=== PATIENT | female | born 1990 | race Caucasian/White ===

== ENCOUNTER 2016-08-24 18:05 | Emergency (ER) | payer BC ==
[2016-08-24 18:05] VITALS: BP 149/89
--- NOTE | 2016-08-24 18:27 | ED.ADGEN ---
Past History Past Medical History: Other Past Surgical History: Tonsillectomy, Other Adult General Chief Complaint Chief Complaint ".. I ve gotten really sick the last couple hours... my stomach hurts.. my epigastric hurts ... my Lt. lower quadrant...hurts.. .. and I feel like I am going to vomit.. and I did have two diarrhea stools.. ( Pt then promptly starts vomiting repeatedly in the trash can) HPI HPI Patient is a 26 year old female who presents with above hx and complaints of Generalized abdomen pain. Patient does have some localization of pain to epigastric area and left lower quadrant. Patient reports no intake of bad food. Patient denies any travel. Patient denies any ill contacts. Patient denies any pulse past history of bowel problems. Patient is normally healthy. Review of Systems Review of Systems Constitutional: Denies fever or chills [] Eyes: Denies change in visual acuity, redness, or eye pain [] HENT: Denies nasal congestion or sore throat [] Respiratory: Denies cough or shortness of breath [] Cardiovascular: No additional information not addressed in HPI [] GI: Plaints of generalized abdominal pain, nausea, vomiting, and diarrhea [] : Denies dysuria or hematuria [] Musculoskeletal: Denies back pain or joint pain [] Integument: Denies rash or skin lesions [] Neurologic: Denies headache, focal weakness or sensory changes [] Endocrine: Denies polyuria or polydipsia [] Family History Family History Noncontributory Current Medications Current Medications Current Medications Medications (Trade) Dose Ordered Sig/Brigid Start Time Stop Time Status Last Admin Dose Admin Clindamycin Phosphate (Cleocin) 900 mg STK-MED ONCE 08/24/16 20:25 08/24/16 20:26 DC Clindamycin Phosphate 300 mg/ Dextrose 52 ml @ 104 mls/hr 1X ONCE 08/24/16 20:00 08/24/16 20:29 DC 08/24/16 20:00 104 MLS/HR Dextrose 50 ml @ As Directed STK-MED ONCE 08/24/16 20:25 08/24/16 20:26 DC Famotidine (Pepcid) 20 mg 1X ONCE 08/24/16 19:00 08/24/16 19:01 DC 08/24/16 19:00 20 MG Lactated Ringer's (Iv Lactated Ringers) 1,000 ml @ 1,000 mls/hr Q1H 08/24/16 19:00 08/24/16 19:08 1,000 MLS/HR Magnesium Hydroxide (Milk Of Magnesia) 2,400 mg 1X ONCE 08/24/16 21:15 08/24/16 21:16 DC 08/24/16 21:15 2,400 MG Morphine Sulfate 10 mg 10 mg 1X ONCE 08/24/16 19:00 08/24/16 19:01 DC 08/24/16 19:00 10 MG Ondansetron HCl (Zofran) 8 mg 1X ONCE 08/24/16 19:00 08/24/16 19:01 DC 08/24/16 19:00 8 MG Potassium Chloride (KCl Oral Soln) 40 meq 1X ONCE 08/24/16 21:15 08/24/16 21:16 DC 08/24/16 21:15 40 MEQ Allergies Allergies Allergies Coded Allergies Type Severity Reaction Last Updated Verified Penicillins Allergy Unknown 08/24/16 Yes ampicillin Allergy Unknown 08/24/16 Yes Physical Exam Physical Exam Constitutional: well nourished, mild distress, non-toxic appearance. [] HENT: Normocephalic, atraumatic, bilateral external ears normal, oropharynx moist, no oral exudates, nose normal. [] Eyes: PERRLA, EOMI, conjunctiva normal, no discharge. Glasses Neck: Normal range of motion, no tenderness, supple, no stridor. [] Cardiovascular:Heart rate regular rhythm, no murmur [] Lungs & Thorax: Bilateral breath sounds clear and equal at apexes on auscultation [] Abdomen: Bowel sounds hyperactive, soft, mild epigastric and left lower quadrant tenderness, no masses, no pulsatile masses. Abdomen is tympanic. No true rebound. Patient denies vaginal discharge. Patient declines pelvic exam at this time Skin: Warm, dry, no erythema, no rash. [] Back: No tenderness, no CVA tenderness. [] Extremities: No tenderness, no cyanosis, no clubbing, ROM intact, no edema. No psoas or heeltap. Neurologic: Alert and oriented X 3, normal motor function, normal sensory function, no focal deficits noted. [] Psychologic: Affect anxious, judgement normal, mood normal. [] Current Patient Data Vital Signs Vital Signs Date Time Temp Pulse Resp B/P Pulse Ox O2 Delivery O2 Flow Rate FiO2 08/24/16 19:15 96 96 08/24/16 19:00 14 08/24/16 18:05 97.4 Room Air Lab Results Laboratory Tests Test 08/24/16 18:40 08/24/16 18:45 08/24/16 18:50 Urine Collection Type Unknown Urine Color Yellow Urine Clarity Hazy Urine pH 5.5 Urine Specific Preston >=1.030 Urine Protein 30 mg/dl (NEG-TRACE) Urine Glucose (UA) Negmg/dL (NEG) Urine Ketones (Stick) 40mg/dL (NEG) Urine Blood Trace (NEG) Urine Nitrite Neg (NEG) Urine Bilirubin Neg (NEG) Urine Urobilinogen Dipstick 0.2mg/dL (0.2 mg/dL) Urine Leukocyte Esterase Trace (NEG) Urine RBC 1-2/HPF (0-2) Urine WBC 5-10/HPF (0-4) Urine Squamous Epithelial Cells Many/LPF Urine Bacteria Few/HPF (0-FEW) Urine Mucus Marked/LPF Urine Opiates Screen Neg (NEG) Urine Methadone Screen Neg (NEG) Urine Barbiturates Neg (NEG) Urine Phencyclidine Screen Neg (NEG) Urine Amphetamine/Methamphetamine Pos (NEG) Urine Benzodiazepines Screen Neg (NEG) Urine Cocaine Screen Neg (NEG) Urine Cannabinoids Screen Neg (NEG) Urine Ethyl Alcohol Neg (NEG) White Blood Count 14.7x10^3/uL (4.0-11.0) H Red Blood Count 5.23x10^6/uL (3.50-5.40) Hemoglobin 15.2g/dL (12.0-15.5) Hematocrit 45.7% (36.0-47.0) Mean Corpuscular Volume 87fL (79-100) Mean Corpuscular Hemoglobin 29pg (25-35) Mean Corpuscular Hemoglobin Concent 33g/dL (31-37) Red Cell Distribution Width 12.3% (11.5-14.5) Platelet Count 329x10^3/uL (140-400) Neutrophils (%) (Auto) 80% (31-73) H Lymphocytes (%) (Auto) 16% (24-48) L Monocytes (%) (Auto) 3% (0-9) Eosinophils (%) (Auto) 0% (0-3) Basophils (%) (Auto) 0% (0-3) Neutrophils # (Auto) 11.8x10^3uL (1.8-7.7) H Lymphocytes # (Auto) 2.4x10^3/uL (1.0-4.8) Monocytes # (Auto) 0.5x10^3/uL (0.0-1.1) Eosinophils # (Auto) 0.0x10^3/uL (0.0-0.7) Basophils # (Auto) 0.1x10^3/uL (0.0-0.2) Prothrombin Time 10.2SEC (9.4-11.4) Prothrombin Time INR 1.0 (0.9-1.1) PTT 21SEC (23-33) L Sodium Level 140mmol/L (136-145) Potassium Level 3.0mmol/L (3.5-5.1) L Chloride Level 102mmol/L (98-107) Carbon Dioxide Level 24mmol/L (21-32) Anion Gap 14 (6-14) Blood Urea Nitrogen 8mg/dL (7-20) Creatinine 0.9mg/dL (0.6-1.0) Estimated GFR (Cockcroft-Gault) 76.9 Glucose Level 113mg/dL (70-99) H Calcium Level 9.5mg/dL (8.5-10.1) Magnesium Level 1.7mg/dL (1.8-2.4) L Total Bilirubin 0.5mg/dL (0.2-1.0) Direct Bilirubin 0.1mg/dL (0.0-0.2) Aspartate Amino Transferase (AST) 16U/L (15-37) Alanine Aminotransferase (ALT) 24U/L (14-59) Alkaline Phosphatase 101U/L (46-116) Creatine Kinase 88U/L (26-192) Total Protein 8.7g/dL (6.4-8.2) H Albumin 4.0g/dL (3.4-5.0) Amylase Level 41U/L (25-115) Lipase 77U/L (73-393) POC Urine HCG, Qualitative hcg negative (Negative) EKG EKG [] Radiology/Procedures Radiology/Procedures Interpretation of chest and abdomen films shows no acute cardiopulmonary findings. There is no free air under the diaphragm. There is nonspecific bowel gas pattern. [] Course & Med Decision Making Course & Med Decision Making Pertinent Labs and Imaging studies reviewed. (See chart for details). Patient stay on a clear fluid diet only for the next 48 hours. No solid no milk products allow bowel rest. Patient take [id number] Tylenol and ibuprofen for discomfort. Patient may take Zofran 8 mg up 4 times a day for nausea and vomiting. Patient to have reexam with primary care. Patient review all x-rays to ED and lab results with primary care. Patient return if any concerns. Push potassium containing fruit drinks. [] Final Impression Final Impression 1. Abdomen Pain 2. Nausea, Vomiting and Diarrhea[] 3. Hypokalemia 4. Hypomagnesium 5. Leukocytosis with a viral differential Problems: Dragon Disclaimer Dragon Disclaimer This electronic medical record was generated, in whole or in part, using a voice recognition dictation system. NORMA FLORES MD Aug 24, 2016 18:27
[2016-08-24] MEDS ORDERED: MORPHINE SULFATE 10 MG/ML SYRINGE. SQ ONE (19:00)
[2016-08-24] MEDS ORDERED: IV RINGERS SOLUTION,LACTATED 1,000 ML IV SCH (19:00)
[2016-08-24] MEDS ORDERED: FAMOTIDINE 20 MG/2 ML VIAL IVP ONE (19:00)
[2016-08-24] MEDS ORDERED: ONDANSETRON PF 4 MG/2 ML VIAL. IV ONE (19:00)
[2016-08-24 19:01] LABS: BASO # 0.1 x10^3/uL (0.0-0.2); BASO % 0 % (0-3); EOS % 0 % (0-3); HEMATOCRIT 45.7 % (36.0-47.0); HEMOGLOBIN 15.2 g/dL (12.0-15.5); LYMPH # 2.4 x10^3/uL (1.0-4.8); LYMPH % 16 % (24-48); MEAN CORPUSCULAR HEMOGLOBIN 29 pg (25-35); MEAN CORPUSCULAR HGB CONC 33 g/dL (31-37); MEAN CORPUSCULAR VOLUME 87 fL (79-100); MONO # 0.5 x10^3/uL (0.0-1.1); MONO % 3 % (0-9); NEUT # 11.8 x10^3uL (1.8-7.7); NEUT % 80 % (31-73); PLATELET COUNT 329 x10^3/uL (140-400); RED BLOOD COUNT 5.23 x10^6/uL (3.50-5.40); RED CELL DISTRIBUTION WIDTH 12.3 % (11.5-14.5); WHITE BLOOD COUNT 14.7 x10^3/uL (4.0-11.0)
[2016-08-24 19:15] LABS: CALCIUM 9.5 mg/dL (8.5-10.1); CREATININE 0.9 mg/dL (0.6-1.0); DIRECT BILIRUBIN 0.1 mg/dL (0.0-0.2); GFR 76.9; MAGNESIUM 1.7 mg/dL (1.8-2.4); TOTAL BILIRUBIN 0.5 mg/dL (0.2-1.0); TOTAL PROTEIN 8.7 g/dL (6.4-8.2)
[2016-08-24 19:17] LABS: AMPHETAMINE/METHAMPHETAMINE POS (NEG); BARBITURATES NEG (NEG); BENZODIAZEPINES NEG (NEG); CANNABINOIDS NEG (NEG); COCAINE NEG (NEG); METHADONE NEG (NEG); OPIATES NEG (NEG); PHENCYCLIDINE NEG (NEG)
[2016-08-24 19:22] LABS: BILIRUBIN,URINE NEG (NEG); CLARITY,URINE HAZY; COLOR,URINE YELLOW; GLUCOSE,URINE NEG (NEG); NITRITE,URINE NEG (NEG); UROBILINOGEN,URINE 0.2 mg/dL (0.2 mg/dL)
[2016-08-24 19:23] LABS: BACTERIA,URINE FEW /HPF (0-FEW); SQUAMOUS EPITHELIAL CELL,UR MANY /LPF
[2016-08-24] MEDS ORDERED: CLINDAMYCIN 300 MG in IV DEXTROSE 5% 50 ML IV ONE (20:00)
[2016-08-24] MEDS ORDERED: CLINDAMYCIN 900 MG/6 ML VIAL. ONE (20:25)
[2016-08-24] MEDS ORDERED: IV DEXTROSE 5% 50 ML ONE (20:25)
[2016-08-24] MEDS ORDERED: LEVO500T38 PO (20:53)
[2016-08-24] MEDS ORDERED: ONDA8TAB12 PO (20:54)
[2016-08-24] MEDS ORDERED: HYDR-79 PO (20:54)
[2016-08-24] MEDS ORDERED: POTASSIUM CHLORIDE 20 MEQ/15 ML ORAL LIQUID. PEG ONE (21:15)
[2016-08-24] MEDS ORDERED: MAGNESIUM HYDROXIDE 2,400 MG/30 ML ORAL.SUSP. PO ONE (21:15)
--- NOTE | 2016-08-25 08:23 | RAD ---
Exam: PA and lateral chest radiograph History: Chest and abdominal pain with nausea and vomiting today. Comparison: None. Findings: Cardiomediastinal silhouette is within normal limits for size. Bilateral lung velázquez are free of focal infiltrate. No pleural effusion is seen. Impression: No acute cardiopulmonary process.
--- NOTE | 2016-08-25 08:23 | RAD ---
Abdomen radiograph History: Pain, nausea, vomiting. Comparison: None. Findings: AP supine and upright views of the abdomen. Bowel gas pattern is nonspecific, without evidence of obstruction. No pneumoperitoneum is identified. No convincing calcification is seen over either renal shadow. Impression: Nonspecific bowel gas pattern.
== END 2016-08-24 21:36 ==
LOC: ER 18:05
DX: R10.84 Generalized abdominal pain (principal); R11.2 Nausea with vomiting, unspecified; R19.7 Diarrhea, unspecified; E87.6 Hypokalemia; E83.42 Hypomagnesemia; D72.828 Other elevated white blood cell count; Z88.0 Allergy status to penicillin; Z88.1 Allergy status to other antibiotic agents
CPT/HCPCS: 36415; 71020; 74020; 80048; 80076; 80305; 81001; 82150; 82550; 83690; 83735; 84443; 84703; 85027; 85610; 85730; 87086; 96361; 96365; 96372; 96375; 99285; J2270; J2405; J7120; S0028; 81025; G0481

== ENCOUNTER → 2020-12-26 | Outpatient (CLI) | payer BC, OTHER ==
[~2020-12-26] MED LIST: HYDR-1179 PO; LEVO500T59 PO; ONDA8TAB12 PO
--- NOTE | 2020-12-26 16:31 | RAD ---
XR FOOT_LEFT 3 VIEWS DATE: 12/26/2020 4:11 PM INDICATION: FELL OUT OF TRUCK, PAIN AROUND 5TH METATARSAL COMPARISON: None. FINDINGS: Bones: There is no evidence of acute fracture or dislocation. Joints: The joint spaces are normal. Miscellaneous: None. IMPRESSION: No acute fracture. Electronically signed by: Tani Andrade MD (12/26/2020 4:29 PM) [facility]
--- NOTE | 2020-12-26 16:33 | RAD ---
XR RT TOE 2+ VIEWS DATE: 12/26/2020 4:11 PM INDICATION: FELL OUT OF TRUCK, RIGHT 1ST DIGIT PAIN COMPARISON: None. FINDINGS: Bones: Nondisplaced fracture at the base of the first distal phalanx, along its lateral aspect. Joints: The joint spaces are normal. Miscellaneous: None. IMPRESSION: Nondisplaced fracture at the base of the first distal phalanx Electronically signed by: Tani Andrade MD (12/26/2020 4:30 PM) [facility]
== END ==
LOC: RAD 15:56
PROVIDERS: ATTEND Physician Assistant
DX: M79.674 Pain in right toe(s) (principal); M79.672 Pain in left foot; V83.9XXA Unspecified occupant of special industrial vehicle injured in nontraffic accident, initial encounter; Y93.89 Activity, other specified; Y92.89 Other specified places as the place of occurrence of the external cause; Y99.8 Other external cause status
CPT/HCPCS: 73630; 73660

== ENCOUNTER → 2021-01-14 | Outpatient (CLI) | payer OTHER ==
--- NOTE | 2021-01-14 12:39 | RAD ---
EXAM: Left knee, 3 views. HISTORY: Palpable lump. COMPARISON: None. FINDINGS: 3 views of the left knee are obtained. There is a metallic BB along the lateral aspect of t he knee at the level of the lateral femoral condyle at the site of reported palpable concern. There i s no suspicious lesion in this location. There is no fracture, dislocation or subluxation. There is n o joint effusion. IMPRESSION: No acute osseous finding. No radiographic correlate for a reported palpable abnormality a long the lateral left knee. Cross sectional imaging or sonographic imaging can be performed if there is concern for a radiographically occult lesion. Electronically signed by: Jenae Hunter MD (01/14/2021 12:36 PM) [id number]
== END ==
LOC: RAD 11:13
PROVIDERS: ATTEND Physician Assistant Medical
DX: M25.562 Pain in left knee (principal)
CPT/HCPCS: 73560

== ENCOUNTER → 2021-01-21 | Outpatient (CLI) | payer OTHER ==
--- NOTE | 2021-01-22 09:14 | RAD ---
US EXT NON VASC LEFT History:Reason: LT LAT KNEE LUMP / Spl. Instructions: / History: Comparison: None Technique: Sonographic examination of the left lateral knee subcutaneous tissues. Findings: Small heterogeneous predominantly hypoechoic lesion within the left lateral knee subcutaneous tissues immediately adjacent to the cutaneous surface measures 0.6 x 0.9 x 0.6 cm. Impression: 1. Small heterogeneous lesion within the left lateral knee subcutaneous tissues, may represent epide rmal inclusion cyst. Recommend continued clinical follow-up and imaging follow-up if interval growth. Electronically signed by: Antoni Cardona DO (01/22/2021 9:12 AM) [id number]
== END ==
LOC: US 15:34
PROVIDERS: ATTEND Physician Assistant Medical
DX: M25.862 Other specified joint disorders, left knee (principal)
CPT/HCPCS: 76881

== ENCOUNTER → 2021-02-07 | Outpatient (CLI) | payer OTHER ==
[~2021-02-07] MED LIST changes: +LABE100T5 PO; +LEVO100T5 PO; +LEVO1TAB9 PO; +SERT100T PO
== END ==
LOC: LAB 13:37
PROVIDERS: ATTEND Surgery
DX: Z01.812 Encounter for preprocedural laboratory examination (principal); Z20.822 Contact with and (suspected) exposure to COVID-19; M79.89 Other specified soft tissue disorders
CPT/HCPCS: U0003

== ENCOUNTER → 2021-02-12 | Day surgery (SDC) | payer OTHER ==
[~2021-02-12] MED LIST changes: +BUPIVACAINE-EPI 0.25%-1:200000 MPF 30 ML VIAL. ONE; +LIDOCAINE 1%/EPI 1:200,000 PF 30 ML VIAL. ONE
--- NOTE | 2021-02-12 09:44 | PDOC4 ---
Operative Report DATE February 122020 at 942 Preop Diagnosis Left lower extremity mass Post-op Diagnosis Same Operation Performed Excision of left lower extremity mass Patient is 30-year-old female with a mass in the left lower extremity just lateral to her knee been causing pain getting larger. Procedure of excision was explained to the patient detail risk benefits were also discussed including bleeding infection alternatives this procedure also discussed with patient who seemed to understand and gave a verbal written consent to have procedure performed. Patient was taken to the minors room placed in the supine position area over the mass was prepped and draped usual sterile fashion using ChloraPrep. An area around the mass was injected with quarter percent Marcaine with epinephrine incision made with a 15 blade scalpel and the mass was excised sharply with Metzenbaum scissors. Mass size was 1 cm with 1 cm margin. Wound was closed in a single layer 4-0 subcuticular Monocryl Mastisol Steri-Strips and island dressing were applied. Patient tolerated procedure well was discharged home in stable condition all sponge instrument needle counts listed as correct e stimated blood loss less than 5 mL Surgeon Mitch ANESTHESIA PROPOSED: LOCAL Blood Loss 5 mL Specimen Left lower extremity lipoma Complications None ROBBIE DORMAN MD Feb 12, 2021 09:44
--- NOTE | 2021-02-12 09:46 | DISCH ---
DISCHARGE INSTRUCTIONS-DC Condition on Discharge Condition on Discharge: Stable Activity after Discharge Activity Instructions for Disc: Resume previous activity Diet after Discharge Diet after Discharge: Regular Wound/Incision Care Other wound/incision instructi: May shower in 24 hours Contacting the after DC Call your doctor for: If your condition worsens Follow-Up Follow up with: Dr. Dorman in 2 weeks ROBBIE DORMAN MD Feb 12, 2021 09:46
[2021-02-12 09:53] VITALS: BP 145/100
--- NOTE | 2021-02-17 17:09 | PATHOLOGY ---
[facility] Accession Number: [id number] . 01 Material submitted: . knee - LEFT KNEE MASS. Modifiers: left . 01 Clinical history: . SEBACEOUS MASS EXCISION OF LEFT LOWER EXTREMITY SEBACEOUS MASS . 02 Diagnosis: Fibroadipose tissue, left knee mass excision: - Leiomyoma. (JPM:pit; 02/17/2021) QTP 02/17/2021 0911 Local . 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 The tumor cells are arranged in interlacing fascicles. The tumor cells have eosinophilic fibrillar cytoplasm, and possess rounded to elongate cigar shaped nuclei. There is a central area of sclerosis. There is no significant nuclear atypia, necrosis, or mitotic activity. A panel of properly controlled immunoperoxidase stains is obtained on A1 and yields the following results: . Smooth muscle actin: Tumor cells positive Smooth muscle myosin heavy chain: Tumor cells positive S100: Tumor cells negative . The morphologic and immunophenotypic findings are supportive of the diagnosis of leiomyoma. There is no evidence of malignancy. (JPM:pit; 02/17/2021) . Special stains performed on A1: Smooth muscle actin, smooth muscle myosin heavy chain, and S100 . 02 Electronically signed: . Gio Magana MD, Pathologist NPI- [id number] . 01 Gross description: . The specimen is received in formalin, labeled "Marsha Fryea, left knee mass". Received is a segment of pale cosme tissue measuring 0.9 x 0.6 x 0.6 cm. The surgical margin is inked. Sectioning reveals pale cosme rubbery cut surfaces. The specimen is serially sectioned and submitted entirely in cassette A1.([facility]; 02/13/2021) [facility] 02/13/2021 [facility] Local . 02 Pathologist provided ICD-10: D21.22 . 02 CPT . 848676, E00783, [id number] Specimen Comment: A courtesy copy of this report has been sent to [phone], [phone] Specimen Comment: [id number] Specimen Comment: Report sent to / DR MOSQUEDA Specimen Comment: A duplicate report has been generated due to demographic updates. Performed at: 01 [facility] [address] [facility] [address], [place] [id number] MD Ry Doe MD Phone: [phone] Performed at: 02 [facility] [address] [place], [place] [id number] MD Gio Magana MD Phone: [phone]
== END | disposition home or self-care (01) ==
LOC: SURG 08:06
PROVIDERS: ATTEND Surgery
DX: D21.22 Benign neoplasm of connective and other soft tissue of left lower limb, including hip (principal); L72.3 Sebaceous cyst; E03.9 Hypothyroidism, unspecified; K21.9 Gastro-esophageal reflux disease without esophagitis; D50.9 Iron deficiency anemia, unspecified; Z87.440 Personal history of urinary (tract) infections; Z87.891 Personal history of nicotine dependence; Z79.899 Other long term (current) drug therapy; Z98.890 Other specified postprocedural states; Z88.0 Allergy status to penicillin; Z88.1 Allergy status to other antibiotic agents
CPT/HCPCS: 11402; J3490; 88305; 88341; 88342